=== PATIENT | male | born 1985 | race Caucasian/White ===

== ENCOUNTER 2016-05-08 13:25 | Emergency (ER) | payer OTHER ==
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
--- NOTE | 2016-05-08 14:27 | ED ORDER SUMMARY ---
..... Patient: LANCE OSPINA OrderSheet [facility] VisitID: [id number] [address] [place] [address] 31y, M Registration Date/Time: 05/08/2016 ORDER SHEET Weight: 58.9 kg Allergies: No Known Drug Allergy GENERAL ORDERS: MEDICATION ORDERS: Hydrocodone-APAP PO 5/325 mg (NOW, HIGH ALERT MEDICATION) (13:59 05/08/2016 HBivens A.R.N.P.) (14:08 [facility]) IV FLUIDS: ORDER SHEET NOTES: [Electronically signed by Parisa Perez (14:47 05/08/2016)] [Electronically signed by Romana North A.R.N.P. (14:47 05/08/2016)] [Electronically locked/signed by Parisa Perez (14:47 05/08/2016)]
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
--- NOTE | 2016-05-08 14:27 | ED ORDER SUMMARY ---
..... Patient: LANCE OSPINA OrderSheet [facility] VisitID: [id number] [address] [place] [address] 31y, M Registration Date/Time: 05/08/2016 ORDER SHEET Weight: 58.9 kg Allergies: No Known Drug Allergy GENERAL ORDERS: MEDICATION ORDERS: Hydrocodone-APAP PO 5/325 mg (NOW, HIGH ALERT MEDICATION) (13:59 05/08/2016 HBivens A.R.N.P.) (14:08 [facility]) IV FLUIDS: ORDER SHEET NOTES: [Electronically signed by Parisa Perez (14:47 05/08/2016)] [Electronically signed by Romana North A.R.N.P. (14:47 05/08/2016)] [Electronically locked/signed by Parisa Perez (14:47 05/08/2016)]
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
--- NOTE | 2016-05-08 14:48 | ED MAR SUMMARY ---
..... Medication Administration Record [address] [place] [address] Patient: LANCE OSPINA Visit ID: [id number] 31y, M Weight: 58.9 kg Height/Length: 69 in BMI: 19.2 ALLERGIES: No Known Drug Allergy Given 14:08 05/08/2016 Parisa Perez, Medication Administered: HYDROCODONE-APAP [PO] (HYDROCODONE-ACETAMINOPHEN), Dose: 1 tab 5/325 mg Tablets PO. Medication Ordered: Hydrocodone-APAP PO 5/325 mg (NOW, HIGH ALERT MEDICATION).
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
--- NOTE | 2016-05-08 14:48 | ED MAR SUMMARY ---
..... Medication Administration Record [address] [place] [address] Patient: LANCE OSPINA Visit ID: [id number] 31y, M Weight: 58.9 kg Height/Length: 69 in BMI: 19.2 ALLERGIES: No Known Drug Allergy Given 14:08 05/08/2016 Parisa Perez, Medication Administered: HYDROCODONE-APAP [PO] (HYDROCODONE-ACETAMINOPHEN), Dose: 1 tab 5/325 mg Tablets PO. Medication Ordered: Hydrocodone-APAP PO 5/325 mg (NOW, HIGH ALERT MEDICATION).
--- NOTE | 2016-05-08 14:48 | ED MED RECONCILIATION SUMMARY ---
Patient: LANCE OSPINA Medication Reconciliation Report [facility] VisitID: [id number] [address] [place] [address] 31y, M Registration Date/Time: 05/08/2016 Weight: 58.9 kg Height/Length: 69 in. BMI: 19.2 ALLERGIES: No Known Drug Allergy The patient's Home Medications are listed below: NONE. The source(s) of the original Home Medication information: Not obtained. The following Medications were given to the patient in the Emergency Department: Hydrocodone-APAP [PO] PO 1 tab, administered: 05/08/2016 2:08:00 PM The following Medications were prescribed to the patient: Ultram 50 mg tablets: take 1-2 orally every 6 hours as needed for pain. Dispense twenty (20). No refills. Substitution is permissible. -- Romana North A.R.N.P.
--- NOTE | 2016-05-08 14:48 | ED MED RECONCILIATION SUMMARY ---
Patient: LANCE OSPINA Medication Reconciliation Report [facility] VisitID: [id number] [place] [address] 31y, M Registration Date/Time: 05/08/2016 Weight: 58.9 kg Height/Length: 69 in. BMI: 19.2 ALLERGIES: No Known Drug Allergy The patient's Home Medications are listed below: NONE. The source(s) of the original Home Medication information: Not obtained. The following Medications were given to the patient in the Emergency Department: Hydrocodone-APAP [PO] PO 1 tab, administered: 05/08/2016 2:08:00 PM The following Medications were prescribed to the patient: Ultram 50 mg tablets: take 1-2 orally every 6 hours as needed for pain. Dispense twenty (20). No refills. Substitution is permissible. -- Romana North A.R.N.P.
== END 2016-05-08 14:45 | disposition home or self-care (01) ==
LOC: ED SRH 13:25
DX: M79.1 Myalgia (principal); V43.52XA Car driver injured in collision with other type car in traffic accident, initial encounter; Y93.89 Activity, other specified; Y92.410 Unspecified street and highway as the place of occurrence of the external cause; Y99.9 Unspecified external cause status